=== PATIENT | male | born 1985 | race Caucasian/White ===

== ENCOUNTER 2022-10-31 08:14 | Emergency (ER) | payer OTHER ==
[~2022-10-31] VITALS: Ht 167.6 cm; Wt 86.2 kg
== END 2022-10-31 11:10 | disposition home or self-care (01) ==
LOC: ER 08:14
DX: M62.830 Muscle spasm of back (principal); Z88.6 Allergy status to analgesic agent

== ENCOUNTER 2024-11-26 19:46 | Emergency (ER) | payer OTHER ==
[~2024-11-26] VITALS: Ht 162.6 cm; Wt 81.6 kg
[2024-11-26] MEDS ORDERED: ACETAMINOPHEN 325 MG TABLET PO STA (20:52)
[2024-11-26 21:00] LABS: HEMATOCRIT 43.4 % (39.0-48.0); HEMOGLOBIN 15.1 g/dL (13-16.00); MEAN CELL VOLUME 88.7 fL (80.0-100.00); MEAN CORPUSCULAR HEMOGLOBIN 30.7 pg (27.00-32.0); MEAN CORPUSCULAR HGB CONC 34.7 g/dl (32.0-36.0); PLATELET COUNT 369 K/uL (150-450); RED CELL DISTRIBUTION WIDTH 13.3 % (11.5-14.5)
[2024-11-26] MEDS ORDERED: ACETAMINOPHEN 500 MG GEL..CAP PO ONE (21:12)
== END 2024-11-26 22:25 | disposition home or self-care (01) ==
LOC: ER 19:48
PROVIDERS: General Practice
DX: J11.1 Influenza due to unidentified influenza virus with other respiratory manifestations (principal); R05.9 Cough, unspecified; Z20.822 Contact with and (suspected) exposure to COVID-19; Z88.6 Allergy status to analgesic agent